=== PATIENT | female | born 1935 | race Caucasian/White ===

== ENCOUNTER 2016-04-07 11:21 | Emergency (ER) | payer OTHER, MEDICARE ==
[~2016-04-07] VITALS: Ht 162.6 cm; Wt 72.6 kg
--- NOTE | 2016-04-07 11:36 | ED DYSPNEA/ASTHMA COMPLAINT ---
History of Present Illness General Chief Complaint: Dyspnea (COPD, CHF, Other) Stated Complaint: PER [facility] LOW O2 SATS AND INCREASED WORK OF BREATHIN Source: patient, family, EMS Exam Limitations: dementia Vital Signs & Intake/Output Vital Signs & Intake/Output Vital Signs Date Time Temp Pulse Resp B/P Pulse O2 O2 Flow FiO2 Ox Delivery Rate 04/07 1930 122/64 04/07 1841 98.7 98 16 104/60 94 Room Air 04/07 1600 98.3 93 18 101/61 92 Room Air 04/07 1400 98.0 82 22 104/56 94 Room Air 04/07 1141 89 Room Air Room Air 04/07 1125 97.7 98 22 100/56 89 Room Air Allergies Coded Allergies: No Known Allergies (04/07/16) Reconcile Medications Ergocalciferol (Vitamin D2) (Vitamin D2) 50,000 UNIT CAPSULE 1 CAP PO QW SUPPLEMENT (Reported) Memantine HCl (Namenda XR) 28 MG CAP.SPR.24 1 CAP PO DAILY DEMENTIA (Reported ) Prednisolone Acetate 1 % DROPS.SUSP 1 GTT OPH D UNK (Reported) Triage Note: TRIAGE: PT BIBA FROM HOME. PER REPORT OF EMS SENT BY [facility] FOR EVAL OF LOW O2 SATS AND HR 120'S. EMS REPORT R/A SATS 95-96% AND HR 100. PT WITH HR 96 ON ARRIVAL AND R/A SATS 88-89%. IMPROVED TO 93% WITH 4L N/C. PT DENIES ANY PAIN. RADHA RANGEL INTO EVALUATE. Triage Nurses Notes Reviewed? yes Onset: Abrupt Duration: better, gone now Timing: single episode today Severity: mild Activities at Onset: none HPI: Patient is a 81-year-old female with past medical history of dementia whose history is limited however patient was brought in by ambulance for concerns of shortness of breath. Patient presents from her private residence It was noted by me to nursing staff that the visiting nurse and the were concerned of patient having A LOW SP02 AND NOT breathing well and which EMS does state to staff that patient has been oxygenating in the high 90's ON ARRIVAL and currently patient offers no complaints. (LEIGHANN KAY) Past History Medical History Any Pertinent Medical History? see below for history Other Medical Hx: DEMENTIA Surgical History Surgical History: non-contributory Psychosocial History What is your primary language Maltese Family History Hx Contributory? No (LEIGHANN KAY) Review of Systems Review of Systems Constitutional: Reports: no symptoms. EENTM: Reports: no symptoms. Respiratory: Reports: see HPI, short of breath. Cardiovascular: Reports: no symptoms. GI: Reports: no symptoms. Genitourinary: Reports: no symptoms. Musculoskeletal: Reports: no symptoms. Skin: Reports: no symptoms. Neurological/Psychological: Reports: no symptoms. Hematologic/Endocrine: Reports: no symptoms. Immunologic/Allergic: Reports: no symptoms. All Other Systems: Reviewed and Negative (LEIGHANN KAY) Physical Exam Physical Exam General Appearance: no apparent distress, alert, comfortable Respiratory: normal breath sounds, chest non-tender, no respiratory distress Comments: Well-developed well-nourished person in no acute distress HEENT: Normal EENT exam Neck: Supple, no lymphadenopathy, normal range of motion without pain or tenderness Back: Nontender, no CVA tenderness. Cardiovascular: Regular rate and rhythms no murmurs rubs or gallops, normal JVP Respiratory: Chest nontender. No respiratory distress.breath sounds clear to auscultation bilaterally Abdomen: Soft, nontender nondistended, no appreciable organomegaly. Normal bowel sounds. No ascites Extremity: No edema, no calf tenderness to palpation, normal and equal pulses. Neuro: Alert motor sensory normal, cranial nerves II through XII grossly intact. Skin: No appreciable rash on exposed skin, skin is warm and dry. Psych: Mood and affect is normal, memory and judgment is normal. Core Measures ACS in differential dx? No Severe Sepsis Present: No Septic Shock Present: No (LEIGHANN KAY) Progress Differential Diagnosis: asthma, AMI, bronchitis, costochondritis, CHF, COPD, musculoskeletal pain, pericarditis, pulmonary embolism, pneumonia, pneumothorax, rib fracture, unstable angina Plan of Care: Orders Procedure Date/time Status Heart Healthy Diet 04/08 B Active TROPONIN LEVEL 04/07 1720 Complete EKG 04/07 1720 Active RAPID VIRAL INFLUENZA A 04/07 1138 Complete BLOOD CULTURE 04/07 1138 Active ARTERIAL BLOOD GAS (GEN) 04/07 1137 Complete TROPONIN LEVEL 04/07 1137 Complete D-DIMER 04/07 1137 Complete COMPREHENSIVE METABOLIC PANEL 04/07 1137 Complete CBC WITHOUT DIFFERENTIAL 04/07 1137 Complete EKG 04/07 1137 Active Current Medications Sig/Justo Start time Last Medication Dose Stop Time Status Admin Sodium Chloride 1,000 ML BOLUS ONE 04/07 1845 CAN (Normal Saline 0.9%) 04/07 1944 Laboratory Tests 04/07/16 1720: Troponin I 0.02 04/07/16 1319: Anion Gap 16, Estimated GFR > 60, BUN/Creatinine Ratio 31.3 H, Glucose 113 H, Calcium 9.9, Total Bilirubin 0.5, AST 12 L, ALT 22, Alkaline Phosphatase 105, Troponin I < 0.01, Total Protein 7.5, Albumin 4.1, Globulin 3.4, Albumin/ Globulin Ratio 1.2, CBC w Diff NO MAN DIFF REQ, RBC 5.01, MCV 96.5, MCH 32.3 H, RDW 14.1, MPV 8.3, Gran % 73.8, Lymphocytes % 16.5 L, Monocytes % 7.9, Eosinophils % 1.4, Basophils % 0.4, Absolute Granulocytes 8.5 H, Absolute Lymphocytes 1.9, Absolute Monocytes 0.9 H, Absolute Eosinophils 0.2, Absolute Basophils 0, PUBS MCHC 33.5 04/07/16 1303: D-Dimer 234 H 04/07/16 1205: pH 7.44, pCO2 35, pO2 66 L, HCO3 23, ABG O2 Sat (Measured) 93.0 L, P-50 (Temp Corrected) N, Carboxyhemoglobin 1.9, O2 Concentration % .21, O2 Delivery Method RA, Phlebotomy Draw Site RIGHT RADIAL Microbiology 04/07 1319 BLOOD: Blood Culture - RECD 04/07 1303 BLOOD: Blood Culture - RECD On initial examination patient was in no apparent distress no respiratory distress and had unremarkable physical exam findings. It was noted that patient had intermittent episodes of 88% room air oxygenation however there is suspicion that this was a insufficient SPO2 monitoring in which patient did receive a ABG showing 93%. Patient had a negative d-dimer essentially ruling out pulmonary embolus and currently patient's initial troponin was negative and second set after 4 hours is pending. Patient currently eating And also is following all commands Patient is following all commands and patient was evaluated on multiple occasions and had no complaints lunchroom monitor noted to be normal sinus rhythm between 80 and 90 bpm Discussed disposition with Dr. LEMON who agrees Patient will be ambulated after she finishes her meal for evaluation of SPO2 04/07/2016 6:52:20 PM I also had a long conversation with patient's Ismael who states that patient has a known history of antalgic gait and instability where she needs significant observation and assistance with a walker and her visiting nurse to ambulate. It was noted by me and evaluated that patient has been at baseline with ambulation and can't weight bear however requires assistance. Patient's oxygen saturation 92% upon standing. Patient will be given a 500 bolus of fluid due to low blood pressure although there is noted prescriptions of diuretic After approximately 250 mL of IV fluid patient had recheck of blood pressure noted to be 122/64 Patient's was ' going to be home at their private residence in which patient will be transferred via [facility] due to fall risk and dementia (LEIGHANN KAY) Diagnostic Imaging: Viewed by Me: Radiology Read. CXR Impression: no acute abnormality, no infiltrates Initial ED EKG: normal QRS complex, normal sinus rhythm, SINUS RHYTHM AND 7 BPM Prior EKG: unchanged Repeat EKG: unchanged Comments: PATIENT: JERSON ROBLES PRESENT AGE: 81 PATIENT ACCOUNT NO: [id number] : 33 LOCATION: [facility] ORDERING PHYSICIAN: LEIGHANN GARCIA SERVICE DATE: 04/07/16 EXAM TYPE: RAD - XRY-PORTABLE CHEST XRAY EXAMINATION: XR PORTABLE CHEST CLINICAL INFORMATION: Hypoxia. COMPARISON: None. TECHNIQUE: Portable AP view of the chest was obtained. FINDINGS: There is mild cardiac enlargement but no evidence of CHF. No infiltrates, effusions, or lung masses are seen. Surgical clip noted upper left chest. IMPRESSION: No acute intrathoracic disease. (LEIGHANN KAY) Departure Departure Disposition: HOME OR SELF CARE Condition: Stable Clinical Impression Primary Impression: Shortness of breath Referrals: PENNY JONES,NIKIA Thompson (PCP/Family) Additional Instructions: As discussed continue home medications as directed. If symptoms worsen return to emergency room. Follow-up with primary care doctor this week for recheck of symptoms Departure Forms: Customer Survey General Discharge Information (LEIGHANN KAY) PA/SHEAR HELPER Co-Sign Statement Statement: ED Attending supervision documentation- [X] I saw and evaluated the patient. I have also reviewed all the pertinent lab results and diagnostic results. I agree with the findings and the plan of care as documented in the PA's/SHEAR HELPER's documentation. [] I have reviewed the ED Record and agree with the PA's/SHEAR HELPER's documentation. [] Additions or exceptions (if any) to the PAs/SHEAR HELPER's note and plan are summarized below: [] The patient is no acute distress. She had 2 negative troponins. unchanged EKG. Negative age-adjusted d-dimer. Chest x-ray negative. She was awake and alert and comfortable in the emergency department (CJ LEMON DO) Critical Care Note Critical Care Note Critical Care Time: non-applicable (JUAN CARLOS GARCIA,LEIGHANN)
[2016-04-07] MEDS ORDERED: NAMENDA XR28 M1 PO (11:38)
[2016-04-07] MEDS ORDERED: PREDNISOLONE ACE5 ML OPH (11:39)
--- NOTE | 2016-04-07 12:30 | RADIOLOGY REPORT ---
EXAMINATION: XR PORTABLE CHEST CLINICAL INFORMATION: Hypoxia. COMPARISON: None. TECHNIQUE: Portable AP view of the chest was obtained. FINDINGS: There is mild cardiac enlargement but no evidence of CHF. No infiltrates, effusions, or lung masses are seen. Surgical clip noted upper left chest. IMPRESSION: No acute intrathoracic disease.
[2016-04-07 13:33] LABS: ABSOLUTE BASOPHIL COUNT 0 /CUMM (0.0-0.2); ABSOLUTE EOSINOPHIL COUNT 0.2 /CUMM (0.0-0.7); ABSOLUTE GRANULOCYTE CT 8.5 /CUMM (1.4-6.5); ABSOLUTE LYMPH COUNT 1.9 /CUMM (1.2-3.4); ABSOLUTE MONOCYTE COUNT 0.9 /CUMM (0.10-0.60); BASOPHIL % 0.4 % (0.0-2.0); EOSINOPHIL % 1.4 % (0-5); GRANULOCYTE % 73.8 % (42.2-75.2); HEMATOCRIT 48.3 % (37-47); MEAN CORPUSCULAR HGB 32.3 PG (27.0-31.0); MEAN CORPUSCULAR HGB CONC 33.5 G/DL (33.0-37.0); MEAN CORPUSCULAR VOLUME 96.5 FL (81.0-99.0); MEAN PLATELET VOLUME 8.3 FL (7.4-10.4); PLATELET COUNT 216 /CUMM (130-400); RBC DISTRIBUTION WIDTH 14.1 % (11.5-14.5); RED BLOOD CELL CT 5.01 /CUMM (4.20-5.40); WHITE BLOOD CELL COUNT 11.5 /CUMM (4.8-10.8)
[2016-04-07] MEDS ORDERED: VITAMIN D250000 UNIT PO (16:10)
[2016-04-07 19:30] VITALS: BP 122/64
== END 2016-04-07 20:04 ==
LOC: ERH 11:21
PROVIDERS: Physician Assistant
DX: R06.02 Shortness of breath (principal); F03.90 Unspecified dementia, unspecified severity, without behavioral disturbance, psychotic disturbance, mood disturbance, and anxiety
CPT/HCPCS: 87040; 87804; 87804-59; 93005; 93010; J7040

== ENCOUNTER 2016-06-02 12:03 | Inpatient (IN) | payer OTHER, MEDICARE ==
[~2016-06-02] VITALS: Ht 162.6 cm; Wt 72.6 kg
[~2016-06-02 12:03] MED LIST: NAMENDA XR28 M1 PO; PREDNISOLONE ACE5 ML OPH; VITAMIN D250000 UNIT PO
--- NOTE | 2016-06-02 12:48 | ED AMS/SEIZURE/WEAK/DIZZY ---
History of Present Illness General Chief Complaint: General Adult Stated Complaint: WEAKNESS Source: patient, old records, EMS Exam Limitations: confusion, dementia Vital Signs & Intake/Output Vital Signs & Intake/Output Vital Signs Date Time Temp Pulse Resp B/P Pulse O2 O2 Flow FiO2 Ox Delivery Rate 06/05 1456 98.2 90 20 108/60 93 06/05 1314 97.9 90 20 120/60 06/05 0646 97.9 90 20 120/60 96 Room Air 06/04 2254 97.7 87 20 118/62 94 Room Air ED Intake and Output 06/05 0000 06/04 1200 Intake Total 1290 0 Output Total Balance 1290 0 Intake, IV 10 Intake, Oral 1280 0 Patient 160 lb Weight Allergies Coded Allergies: No Known Allergies (04/07/16) Reconcile Medications Acetaminophen 500 MG TABLET 2 TAB PO PRN PAIN (Reported) Docusate Sodium (Colace) 100 MG CAPSULE 1 CAP PO DAILY STOOL SOFTENER ( Reported) Ergocalciferol (Vitamin D2) (Vitamin D2) 50,000 UNIT CAPSULE 1 CAP PO QWED SUPPLEMENT (Reported) Memantine HCl (Namenda XR) 28 MG CAP.SPR.24 1 CAP PO DAILY DEMENTIA (Reported ) Prednisolone Acetate 1 % DROPS.SUSP 1 GTT OPH QAM BOTH EYES (Reported) Triage Note: PT BIBA FROM HOME FOR WEAKNESS. PT LIVES AT HOME WITH . VISITING NURSES CAME IN TO SEE PT AND CALLED 911 DUE PT HAVING INCREASED WEAKNESS OVER THE LAST 3 DAYS. PT ARRIVES ALERT/CONFUSED (BASELINE) H/O DEMENTIA. PT ALERT TO SELF ONLY. DENIES ANY PAIN, UNSURE WHY SHE IS HERE. CHANGED INTO GOWN, AWAITING EVAL. Triage Nurses Notes Reviewed? yes HPI: Patient presents for evaluation of generalized weakness. Although the patient herself is unable to provide history and has no specific complaint at this time, she was felt to require emergency evaluation by her visiting nurse. Past History Travel History Traveled to [place] past 21 day No Medical History Any Pertinent Medical History? see below for history Neurological: dementia EENT: IRITIS Cardiovascular: NONE Respiratory: NONE Gastrointestinal: constipation Hepatic: NONE Renal: NONE Musculoskeletal: RIB FX COLLARBONE FX Psychiatric: NONE Endocrine: NONE Blood Disorders: NONE Cancer(s): NONE Other Medical Hx: DEMENTIA Surgical History Surgical History: non-contributory Psychosocial History What is your primary language Belarusian Tobacco Use: Cognitive Impairment Family History Hx Contributory? No Review of Systems Review of Systems Constitutional: Reports: weakness. EENTM: Reports: no symptoms. Respiratory: Reports: no symptoms. Cardiovascular: Reports: no symptoms. GI: Reports: no symptoms. Genitourinary: Reports: no symptoms. Musculoskeletal: Reports: no symptoms. Skin: Reports: no symptoms. Neurological/Psychological: Reports: confusion. Hematologic/Endocrine: Reports: no symptoms. Immunologic/Allergic: Reports: no symptoms. All Other Systems: Reviewed and Negative Physical Exam Physical Exam General Appearance: SEE BELOW Comments: Gen.: Well-nourished, well-developed, no acute respiratory distress. Head: Normocephalic, atraumatic. Eyes: Normal inspection bilaterally Ears: Normal inspection bilaterally Nose: Normal inspection Throat/mouth : Tacky mucosa Neck: Supple, full range of motion, no goiter Heart: Regular rate and rhythm, no murmurs rubs or gallops Lungs: Clear to auscultation bilaterally with normal air entry Chest: Nontender Back: Normal range of motion Abdomen: Soft, mild diffuse abdominal tenderness without rebound or guarding, nondistended, normal bowel sounds Extremities: Normal range of motion grossly, equal radial pulses, no cyanosis clubbing or edema Neurologic: Cranial nerves grossly intact, speech is clear Skin: warm and dry Psychiatric: Calm, cooperative, no apparent delusions or hallucinations, response is slow but otherwise appropriate Core Measures ACS in differential dx? No CVA/TIA Diagnosis: No Severe Sepsis Present: No Septic Shock Present: No Progress Differential Diagnosis: OCCULT INFECTION, DEHYDRATION, ELECTROLYTE ABNORMALITY cva Plan of Care: Orders Procedure Date/time Status Discharge Patient 06/05 UNK Active Laboratory Tests 06/05/16 0806: Anion Gap 13, Estimated GFR > 60, BUN/Creatinine Ratio 22.9 Initial ED EKG: NSR, rate (88), nonspecific ST T wave chg Prior EKG: unchanged Comments: 06/02/2016 3:15:04 PM patient treated with IV Rocephin for urinary tract infection and normal saline infusion for hypernatremia. Departure Departure Disposition: STILL A PATIENT Condition: Stable Clinical Impression Primary Impression: Acute confusion Secondary Impressions: Altered mental status Qualifiers: Altered mental status type: unspecified Qualified Code: R41.82 - Altered mental status, unspecified Hypernatremia UTI (urinary tract infection) Qualifiers: Urinary tract infection type: acute cystitis Hematuria presence: without hematuria Qualified Code: N30.00 - Acute cystitis without hematuria Referrals: PENNY JONES,NIKIA Thompson (PCP/Family) Departure Forms: Customer Survey General Discharge Information Admission Note Spoke With: DAVIN FRANCE MD Documentation of Exam: Documentation of any treatments & extenuating circumstances including Concerns Regarding Discharge (functional status, medication knowledge or non-compliance, living conditions, etc.) that warrant an admission rather than observation: Patient presents with severe generalized weakness and worsening confusion. She has a urinary tract infection and hypernatremia. Given her age and baseline dementia, I do not feel she has a good candidate for outpatient management. I feel she would be unable to comply with outpatient treatment and would potentially return in worse clinical condition including urosepsis. I feel in order to prevent secondary sepsis the patient should be hospitalized and treated aggressively with IV antibiotics. In addition the patient has hypernatremia and her sodium level should be monitored as she is treated with normal saline. Given this patient's advanced age and multiple medical comorbidities and further treatment will be prolonged and potentially complicated, thus requiring a multi- day hospitalization. treatment will be prolonged and potentially complicated, thus requiring a multi- day hospitalization.
[2016-06-02 13:06] LABS: ABSOLUTE BASOPHIL COUNT 0 /CUMM (0.0-0.2); ABSOLUTE EOSINOPHIL COUNT 0.2 /CUMM (0.0-0.7); ABSOLUTE GRANULOCYTE CT 7.2 /CUMM (1.4-6.5); ABSOLUTE LYMPH COUNT 1.6 /CUMM (1.2-3.4); ABSOLUTE MONOCYTE COUNT 0.7 /CUMM (0.10-0.60); BASOPHIL % 0.5 % (0.0-2.0); EOSINOPHIL % 1.6 % (0-5); GRANULOCYTE % 74.3 % (42.2-75.2); MEAN CORPUSCULAR HGB 31.5 PG (27.0-31.0); MEAN CORPUSCULAR HGB CONC 32.8 G/DL (33.0-37.0); MEAN CORPUSCULAR VOLUME 95.9 FL (81.0-99.0); MEAN PLATELET VOLUME 8.6 FL (7.4-10.4); PLATELET COUNT 235 /CUMM (130-400); WHITE BLOOD CELL COUNT 9.7 /CUMM (4.8-10.8)
--- NOTE | 2016-06-02 14:08 | RADIOLOGY REPORT ---
EXAMINATION: XR PORTABLE CHEST CLINICAL INFORMATION: Weakness COMPARISON: 04/07/2016 TECHNIQUE: Portable AP view of the chest was obtained. FINDINGS: The lungs are clear with no focal consolidation. No evidence of pneumothorax, pulmonary edema, or pleural effusions. Cardiac size is within normal limits. Calcification is present at the aortic arch. No acute osseous findings are seen. Healed left rib fractures are noted. IMPRESSION: No acute cardiopulmonary findings.
--- NOTE | 2016-06-02 15:53 | History & Physical ---
DALLASVARSHAPLACIDO Smyth 06/02/16 1553: General Information and HPI MD Statement: I have seen and personally examined JERSON ROBLES and documented this H&P. The patient is a 81 year old F who presented with a patient stated chief complaint of [change in mentation, slow answering questions]. Source of Information: family, old records Exam Limitations: clinical condition History of Present Illness: Mrs. Robles is a 81-year-old lady with a PMH of vitamin D deficiency, dementia, traumatic fall in 2010 with resultant "traumatic dementia", ambulates with the aid of a rolling walker with assist, chronic constipation was brought in after noticeable decrease in her ability to answer questions over the past few days. Information is obtained primarily from the patient's . At her baseline the patient does have visiting nurse twice a day, is independent with feeding herself, requires assistance with all other ADLs, does have some deficits with verbalization. They report that over the past 3 days she has exhibited some difficulty with eating and decreased ability to communicate. She does have a history of chronic constipation but has maintained a regular BM over the past few days. They deny any recent fevers, chills, changes in medication/diet, complaints of abdominal pain or nausea. Allergies/Medications Allergies: Coded Allergies: No Known Allergies (04/07/16) Home Med list Acetaminophen 500 MG TABLET 2 TAB PO PRN PAIN (Reported) Docusate Sodium (Colace) 100 MG CAPSULE 1 CAP PO DAILY STOOL SOFTENER ( Reported) Ergocalciferol (Vitamin D2) (Vitamin D2) 50,000 UNIT CAPSULE 1 CAP PO QWED SUPPLEMENT (Reported) Memantine HCl (Namenda XR) 28 MG CAP.SPR.24 1 CAP PO DAILY DEMENTIA (Reported ) Prednisolone Acetate 1 % DROPS.SUSP 1 GTT OPH QAM BOTH EYES (Reported) Past History Travel History Traveled to [place] past 21 day No Medical History Neurological: dementia EENT: IRITIS Cardiovascular: NONE Respiratory: NONE Gastrointestinal: constipation Hepatic: NONE Renal: NONE Musculoskeletal: RIB FX COLLARBONE FX Psychiatric: NONE Endocrine: NONE Blood Disorders: NONE Cancer(s): NONE Other Medical Hx: DEMENTIA Surgical History Surgical History: non-contributory Review of Systems Review of Systems Constitutional: Reports: see HPI. EENTM: Reports: no symptoms. Cardiovascular: Reports: no symptoms. Respiratory: Reports: no symptoms. GI: Reports: see HPI. Genitourinary: Reports: no symptoms. Musculoskeletal: Reports: see HPI. Skin: Reports: no symptoms. Exam & Diagnostic Data Last 24 Hrs of Vital Signs/I&O Vital Signs Date Time Temp Pulse Resp B/P Pulse O2 O2 Flow FiO2 Ox Delivery Rate 06/02 1749 98.1 97 16 108/64 93 Room Air 06/02 1639 97.2 93 20 133/64 93 Room Air 06/02 1448 97.0 89 16 154/77 90 Room Air 06/02 1412 99.0 80 20 144/68 90 Room Air 06/02 1307 92 135/63 06/02 1307 98.0 89 20 115/58 06/02 1225 97.0 68 123/60 06/02 1210 96 Room Air Intake & Output 06/02 1600 06/02 0800 06/02 0000 Intake Total Output Total 100 Balance -100 Output, Urine 100 Patient 160 lb Weight Physical Exam General Appearance Alert, No Acute Distress, AAO X1 (person) HEENT EOMI, Mucous Membr. moist/pink Cardiovascular Regular Rate, Normal S1, Normal S2 Lungs Normal Air Movement, DImnished breAth sounds in the basilar regions Abdomen Normal Bowel Sounds, Soft, No Tenderness Neurological AAO X1 (Person) unable to complete a full neurologic exam at this time. Chronic LLE atrophy Extremities Normal Pulses Vascular Pulses Symmetrical Last 24 Hrs of Labs/Antione: Laboratory Tests 06/02/16 1300: Urine Color YEL, Urine Clarity HAZY H, Urine pH 6.0, Ur Specific [place] 1.025, Urine Protein NEG, Urine Ketones NEG, Urine Nitrite POS H, Urine Bilirubin NEG, Urine Urobilinogen 0.2, Ur Leukocyte Esterase MOD H, Ur Microscopic SEDIMENT EXAMINED, Urine RBC 3-5, Urine WBC 25-50 H, Ur Epithelial Cells RARE, Urine Bacteria PACKD H, Urine Hemoglobin TRACE-INTACT, Urine Glucose NEG 06/02/16 1240: Anion Gap 12, Estimated GFR > 60, BUN/Creatinine Ratio 31.3 H, Glucose 152 H, Calcium 9.9, Total Bilirubin 0.5, AST 14, ALT 24, Alkaline Phosphatase 94, Troponin I < 0.01, Total Protein 7.3, Albumin 3.9, Globulin 3.4, Albumin/ Globulin Ratio 1.1, TSH 1.500, Free T4 1.31, Total T3 1.12, CBC w Diff NO MAN DIFF REQ, RBC 4.80, MCV 95.9, MCH 31.5 H, RDW 13.0, MPV 8.6, Gran % 74.3, Lymphocytes % 16.3 L, Monocytes % 7.3, Eosinophils % 1.6, Basophils % 0.5, Absolute Granulocytes 7.2 H, Absolute Lymphocytes 1.6, Absolute Monocytes 0.7 H, Absolute Eosinophils 0.2, Absolute Basophils 0, PUBS MCHC 32.8 L Assessment/Plan Assessment: 81-year-old lady with a PMH of vitamin D deficiency, dementia, traumatic fall in 2010 with resultant "traumatic dementia", ambulates with the aid of a rolling walker with assist, chronic constipation was brought in after noticeable decrease in her ability to answer questions over the past few days. VS admission: BP 123/60, HR 68, RR 20, SPO2 96% on RA, T 97.0 Pertinent labs: WBC 9.7, H&H 15.1/46.0, platelets 230, sodium 149, potassium 4.5 , BUN/CR 25/0.8, glucose 152 UA: Moderate leukocyte esterase, positive nitrites, 25-50 WBCs, packed bacteria Problem list 1. UTI 2. Delirium 3. Dementia 4. Vitamin D deficiency 5. Hypernatremia Plan: * Admit to general medicine floor * We'll start the patient on ceftriaxone for UTI. Follow-up urine cultures and sensitivities * Delirium likely secondary to urinary tract infection. Continue to monitor over the next 24 hours * Mild hyponatremia. D5 half NS at 75/hr X1. Repeat BMP in the a.m. * PT evaluation in the a.m. * DVT prophylaxis: Lovenox * Bowel regimen for constipation * Full code As Ranked By This Provider Problem List: 1. UTI (urinary tract infection) Qualifiers Urinary tract infection type: acute cystitis Hematuria presence: without hematuria Qualified Code: N30.00 - Acute cystitis without hematuria 2. Hypernatremia 3. Delirium 4. Constipation Core Measures/Miscellaneous Acute Coronary Syndrome ACS Diagnosis: No Cerebrovascular Accident CVA/TIA Diagnosis: No Congestive Heart Failure CHF Diagnosis: No Venous Thromboembolism VTE Risk Factors: Age > 40 [facility] prophylaxis d/t: No contraindications No VTE Pharm Prophylaxis d/t: No contraindications VTE Diagnosis: No VTE Type: NONE VTE Confirmed by (Test): NONE Severe Sepsis Severe Sepsis Present: No Septic Shock Septic Shock Present: No Miscellaneous Documentation Attending Case Discussed With: DAVIN FRANCE MD Primary Care Physician: PENNY JONES,NIKIA Thompson Patient sees these Specialists NA Level of Patient Care: General Medicine Resident Review Statement Resident Statement: examined this patient, discussed with international tax manager, agreed with international tax manager, discussed with family, reviewed EMR data (avail), discussed with case mgmt DAVIN FRANCE MD 06/02/16 2159: Attending MD Review Statement Attending Statement Attending MD Statement: examined this patient, discuss w/resident/PA/HIRED WORKER, agreed w/resident/PA/HIRED WORKER, reviewed EMR data (avail) Attending Assessment/Plan: 81F who lives alone and is independent presenting with delirium, metabolic encephalopathy, and unsteady gait, likely secondary to UTI evidenced by urinalysis. Labs and clinical evaluation show dehydration and hypernatremia. Will start IV fluids, Ceftriaxone, PT eval, continue home medications, monitor electrolytes, DVT PPx
[2016-06-02] MEDS ORDERED: COLACE100 M1 PO (16:22)
[2016-06-02] MEDS ORDERED: ACETAMINOPHEN500 M4 PO (16:23)
[2016-06-02 17:49] VITALS: BP 108/64
--- NOTE | 2016-06-02 22:02 | Admission Certification ---
Admission Certification Certification Statement - As attending physician, I certify that at the time of - admission, based on clinical presentation, severity of - symptoms, need for further diagnostic testing and - therapeutic interventions, and risk of adverse outcomes - without in-hospital treatment, in my clinical assessment, - this patient requires an acute hospital stay for a minimum - of two nights or longer. I have also considered psychsocial - factors such as support system, advanced age, financial - issues, cognitive issues, and failed out-patient treatments, - past re-admission history, safety of patient, and lack of - compliance as applicable. Specific rationale supporting this admission is: Delirium, dehydration, UTI, hypernatremia
[2016-06-02 22:24] VITALS: BP 110/60
[2016-06-03 06:43] VITALS: BP 118/66
--- NOTE | 2016-06-03 07:58 | PN- Housestaff ---
[facility] 0758: Subjective Follow-up For: Delirium most likely secondary to UTI and hypernatremia Subjective: Afebrile, hemodynamically stable, WBCs WNL, no acute overnight events reported. Patient is demented and no accurate review system can't be obtained, however she looks relaxed and comfortable. Review of Systems Constitutional: Reports: no symptoms, see HPI. Objective Last 24 Hrs of Vital Signs/I&O Vital Signs Date Time Temp Pulse Resp B/P Pulse O2 O2 Flow FiO2 Ox Delivery Rate 06/03 1132 Room Air 06/03 0643 98.6 85 18 118/66 92 Room Air 06/03 0000 91 Room Air 06/02 2224 98.4 97 18 110/60 91 Room Air 06/02 1749 98.1 97 16 108/64 93 Room Air 06/02 1639 97.2 93 20 133/64 93 Room Air 06/02 1448 97.0 89 16 154/77 90 Room Air 06/02 1412 99.0 80 20 144/68 90 Room Air 06/02 1307 92 135/63 06/02 1307 98.0 89 20 115/58 06/02 1225 97.0 68 123/60 06/02 1210 96 Room Air Intake & Output 06/03 1600 06/03 0800 06/03 0000 Intake Total 100 240 Output Total Balance 100 240 Intake, Oral 100 240 Number 0 Bowel Movements Patient 72.575 kg Weight Physical Exam General Appearance: Alert, Cooperative, No Acute Distress, oriented X1 HEENT: Atraumatic, PERRLA, EOMI, Mucous Membr. moist/pink Cardiovascular: Regular Rate, Normal S1, Normal S2, No Murmurs Lungs: Clear to Auscultation, Normal Air Movement Abdomen: Soft, No Tenderness Neurological: alert but not oriented Extremities: No Clubbing, No Cyanosis, No Edema Current Medications: Current Medications Sig/Justo Start time Last Medication Dose Route Stop Time Status Admin Ceftriaxone Sodium 1,000 MG DAILY 06/03 1000 AC 06/03 IV 0931 Ceftriaxone Sodium 0 .STK-MED ONE 06/02 1421 DC .ROUTE Ceftriaxone Sodium 1,000 MG ONCE ONE 06/02 1415 DC 06/02 IV 06/02 1416 1440 Dextrose/Sodium 1,000 ML ONCE ONE 06/02 2200 DC 06/02 Chloride IV 06/03 1119 2332 Dextrose/Water 1,000 ML ONCE ONE 06/03 1015 AC 06/03 IV 06/03 2334 1048 Docusate Sodium 100 MG DAILY 06/02 1656 AC 06/03 PO 0931 Enoxaparin Sodium 40 MG DAILY@1600 06/03 1600 AC SC Enoxaparin Sodium 0 .STK-MED ONE 06/02 1643 DC SC Enoxaparin Sodium 40 MG DAILY 06/02 1633 DC 06/02 SC 1641 Ergocalciferol 50,000 IU QWED 06/03 0700 AC 06/03 PO 0526 Ibuprofen 600 MG Q6P PRN 06/02 1715 AC PO Ibuprofen 600 MG Q6P PRN 06/02 1645 DC PO Memantine 10 MG BID 06/02 2200 AC 06/03 PO 0931 Oxycodone/ 1 TAB Q6P PRN 06/02 1645 AC Acetaminophen PO Oxycodone/ 2 TAB Q6P PRN 06/02 1645 AC Acetaminophen PO Prednisolone 1 GTT QAM 06/03 1000 AC 06/03 OPH 0931 Sodium Chloride 1,000 ML ONCE ONE 06/02 1415 DC 06/02 IV 06/02 2054 1440 Last 24 Hrs of Lab/Antione Results Last 24 Hrs of Labs/Mics: Laboratory Tests 06/03/16 0735: Anion Gap 11, Estimated GFR > 60, BUN/Creatinine Ratio 27.1 H, CBC w Diff NO MAN DIFF REQ, RBC 4.34, MCV 95.9, MCH 31.9 H, RDW 13.7, MPV 8.4, Gran % 66.4, Lymphocytes % 21.0, Monocytes % 8.6, Eosinophils % 3.6, Basophils % 0.4, Absolute Granulocytes 5.3, Absolute Lymphocytes 1.7, Absolute Monocytes 0.7 H, Absolute Eosinophils 0.3, Absolute Basophils 0, PUBS MCHC 33.3 06/02/16 1300: Urine Color YEL, Urine Clarity HAZY H, Urine pH 6.0, Ur Specific [place] 1.025, Urine Protein NEG, Urine Ketones NEG, Urine Nitrite POS H, Urine Bilirubin NEG, Urine Urobilinogen 0.2, Ur Leukocyte Esterase MOD H, Ur Microscopic SEDIMENT EXAMINED, Urine RBC 3-5, Urine WBC 25-50 H, Ur Epithelial Cells RARE, Urine Bacteria PACKD H, Urine Hemoglobin TRACE-INTACT, Urine Glucose NEG 06/02/16 1240: Anion Gap 12, Estimated GFR > 60, BUN/Creatinine Ratio 31.3 H, Glucose 152 H, Calcium 9.9, Total Bilirubin 0.5, AST 14, ALT 24, Alkaline Phosphatase 94, Troponin I < 0.01, Total Protein 7.3, Albumin 3.9, Globulin 3.4, Albumin/ Globulin Ratio 1.1, TSH 1.500, Free T4 1.31, Total T3 1.12, CBC w Diff NO MAN DIFF REQ, RBC 4.80, MCV 95.9, MCH 31.5 H, RDW 13.0, MPV 8.6, Gran % 74.3, Lymphocytes % 16.3 L, Monocytes % 7.3, Eosinophils % 1.6, Basophils % 0.5, Absolute Granulocytes 7.2 H, Absolute Lymphocytes 1.6, Absolute Monocytes 0.7 H, Absolute Eosinophils 0.2, Absolute Basophils 0, PUBS MCHC 32.8 L Assessment/Plan Assessment: 1. Delirium most likely multifactorial secondaryto UTI , hypernatremia, and dementia. * Continue ceftriaxone for UTI. * Follow-up urine cultures and sensitivities 2. Hypernatremia * Continue D5W at 75/hr X1. * Repeat BMP daily 3. Low vitamin D * Continue home dose of vitamin D Pain management with Percocet and ibuprofen when necessary as per scale DVT prophylaxis: Lovenox Full code Problem List: 1. UTI (urinary tract infection) 2. Delirium 3. Hypernatremia Pain Ratin Pain Location: na Pain Goal: Remain pain free Pain Plan: See A&P Tomorrow's Labs & Rationales: BEP for hypernatremia follow-up KHANG DURBIN 06/03/16 1129: Attending MD Review Statement Attending Statement Attending MD Statement: examined this patient, discuss w/resident/PA/GLASS BEVELLER, agreed w/resident/PA/GLASS BEVELLER, discussed with family, reviewed EMR data (avail), discussed with nursing, discussed with case mgmt, reviewed images Attending Assessment/Plan: 81F who lives alone and is independent presenting with delirium, toxic metabolic encephalopathy, and unsteady gait, likely secondary to UTI evidenced by urinalysis. Labs and clinical evaluation show dehydration and hypernatremia. c/ w IV fluids, Ceftriaxone, PT eval, can d/c abx if cultures remain negative. Continue home medications, monitor electrolytes, DVT PPx
[2016-06-03 09:19] LABS: ABSOLUTE BASOPHIL COUNT 0 /CUMM (0.0-0.2); ABSOLUTE EOSINOPHIL COUNT 0.3 /CUMM (0.0-0.7); ABSOLUTE GRANULOCYTE CT 5.3 /CUMM (1.4-6.5); ABSOLUTE LYMPH COUNT 1.7 /CUMM (1.2-3.4); ABSOLUTE MONOCYTE COUNT 0.7 /CUMM (0.10-0.60); BASOPHIL % 0.4 % (0.0-2.0); EOSINOPHIL % 3.6 % (0-5); GRANULOCYTE % 66.4 % (42.2-75.2); HEMATOCRIT 41.6 % (37-47); MEAN CORPUSCULAR HGB 31.9 PG (27.0-31.0); MEAN CORPUSCULAR HGB CONC 33.3 G/DL (33.0-37.0); MEAN CORPUSCULAR VOLUME 95.9 FL (81.0-99.0); MEAN PLATELET VOLUME 8.4 FL (7.4-10.4); PLATELET COUNT 219 /CUMM (130-400); RBC DISTRIBUTION WIDTH 13.7 % (11.5-14.5); RED BLOOD CELL CT 4.34 /CUMM (4.20-5.40)
[2016-06-03 14:23] VITALS: BP 104/60
--- NOTE | 2016-06-03 15:14 | Discharge Summary ---
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 VS admission: BP 123/60, HR 68, RR 20, SPO2 96% on RA, T 97.0 Pertinent labs: WBC 9.7, H&H 15.1/46.0, platelets 230, sodium 149, potassium 4.5 , BUN/CR 25/0.8, glucose 152 UA: Moderate leukocyte esterase, positive nitrites, 25-50 WBCs, packed bacteria The patient was admitted to the general medicine floor and was treated in the hospital for the following problems 1. Acute delirium likely secondary to underlying UTI versus hypernatremia 2. Suspicion of urinary tract infection 3. Hypernatremia 4. Chronic vitamin D deficiency 5. Chronic constipation Hospital course the patient was treated in the hospital with IV fluids. Free water deficit of 2.5 L was corrected with D5 W normal saline The patient's antibiotics were discontinued at the suspicion for UTI was low. No changes were made to the patient's medications. The patient was evalautaed by the physical therapy who recommended the patient would benefit from short-term rehabilitation. the patient's sodium at the time of discharge was 143. Recommend continuing woith hydration and low sodium diet. Final disposition STR Allergies: Coded Allergies: No Known Allergies (04/07/16) Significant Procedures: Laboratory Tests 06/04 06/03 0640 0735 Chemistry Sodium (137 - 145 mmol/L) Pending 148 H Potassium (3.5 - 5.1 mmol/L) Pending 4.3 Chloride (98 - 107 mmol/L) Pending 112 H Carbon Dioxide (22 - 30 mmol/L) Pending 26 Anion Gap (5 - 16) Pending 11 BUN (7 - 17 mg/dL) Pending 19 H Creatinine (0.5 - 1.0 mg/dL) Pending 0.7 Estimated GFR (>60 ml/min) > 60 BUN/Creatinine Ratio (7 - 25 %) Pending 27.1 H Hematology CBC w Diff NO MAN DIFF REQ WBC (4.8 - 10.8 /CUMM) 8.0 RBC (4.20 - 5.40 /CUMM) 4.34 Hgb (12.0 - 16.0 G/DL) 13.8 Hct (37 - 47 %) 41.6 MCV (81.0 - 99.0 FL) 95.9 MCH (27.0 - 31.0 PG) 31.9 H RDW (11.5 - 14.5 %) 13.7 Plt Count (130 - 400 /CUMM) 219 MPV (7.4 - 10.4 FL) 8.4 Gran % (42.2 - 75.2 %) 66.4 Lymphocytes % (20.5 - 51.1 %) 21.0 Monocytes % (1.7 - 9.3 %) 8.6 Eosinophils % (0 - 5 %) 3.6 Basophils % (0.0 - 2.0 %) 0.4 Absolute Granulocytes (1.4 - 6.5 /CUMM) 5.3 Absolute Lymphocytes (1.2 - 3.4 /CUMM) 1.7 Absolute Monocytes (0.10 - 0.60 /CUMM) 0.7 H Absolute Eosinophils (0.0 - 0.7 /CUMM) 0.3 Absolute Basophils (0.0 - 0.2 /CUMM) 0 PUBS MCHC (33.0 - 37.0 G/DL) 33.3 04/ 04/ 1300 1240 Chemistry Sodium (137 - 145 mmol/L) 149 H Potassium (3.5 - 5.1 mmol/L) 4.5 Chloride (98 - 107 mmol/L) 109 H Carbon Dioxide (22 - 30 mmol/L) 28 Anion Gap (5 - 16) 12 BUN (7 - 17 mg/dL) 25 H Creatinine (0.5 - 1.0 mg/dL) 0.8 Estimated GFR (>60 ml/min) > 60 BUN/Creatinine Ratio (7 - 25 %) 31.3 H Glucose (65 - 99 mg/dL) 152 H Calcium (8.4 - 10.2 mg/dL) 9.9 Total Bilirubin (0.2 - 1.3 mg/dL) 0.5 AST (14 - 36 U/L) 14 ALT (9 - 52 U/L) 24 Alkaline Phosphatase (<127 U/L) 94 Troponin I (< 0.11 ng/ml) < 0.01 Total Protein (6.3 - 8.2 g/dL) 7.3 Albumin (3.5 - 5.0 g/dL) 3.9 Globulin (1.9 - 4.2 gm/dL) 3.4 Albumin/Globulin Ratio (1.1 - 2.2 %) 1.1 TSH (0.270 - 4.200 uIU/mL) 1.500 Free T4 (0.85 - 1.93 ng/dL) 1.31 Total T3 (0.97 - 1.69 ng/mL) 1.12 Hematology CBC w Diff NO MAN DIFF REQ WBC (4.8 - 10.8 /CUMM) 9.7 RBC (4.20 - 5.40 /CUMM) 4.80 Hgb (12.0 - 16.0 G/DL) 15.1 Hct (37 - 47 %) 46.0 MCV (81.0 - 99.0 FL) 95.9 MCH (27.0 - 31.0 PG) 31.5 H RDW (11.5 - 14.5 %) 13.0 Plt Count (130 - 400 /CUMM) 235 MPV (7.4 - 10.4 FL) 8.6 Gran % (42.2 - 75.2 %) 74.3 Lymphocytes % (20.5 - 51.1 %) 16.3 L Monocytes % (1.7 - 9.3 %) 7.3 Eosinophils % (0 - 5 %) 1.6 Basophils % (0.0 - 2.0 %) 0.5 Absolute Granulocytes (1.4 - 6.5 /CUMM) 7.2 H Absolute Lymphocytes (1.2 - 3.4 /CUMM) 1.6 Absolute Monocytes (0.10 - 0.60 /CUMM) 0.7 H Absolute Eosinophils (0.0 - 0.7 /CUMM) 0.2 Absolute Basophils (0.0 - 0.2 /CUMM) 0 PUBS MCHC (33.0 - 37.0 G/DL) 32.8 L Urines Urine Color (YEL,AMB,STR) YEL Urine Clarity (CLEAR) HAZY H Urine pH (5.0 - 8.0) 6.0 Ur Specific [place] (1.001 - 1.035) 1.025 Urine Protein (NEG,<30 MG/DL) NEG Urine Ketones (NEG) NEG Urine Nitrite (NEG) POS H Urine Bilirubin (NEG) NEG Urine Urobilinogen (0.1 - 1.0 EU/dl) 0.2 Ur Leukocyte Esterase (NEG) MOD H Ur Microscopic SEDIMENT EXAMINED Urine RBC (0 - 5 /HPF) 3-5 Urine WBC (0 - 2 /HPF) 25-50 H Ur Epithelial Cells (NONE,FEW) RARE Urine Bacteria (NEG/NONE) PACKD H Urine Hemoglobin (NEG) TRACE-INTACT Urine Glucose (N MG/DL) NEG Disposition Summary Disposition Principal Diagnosis: Hypoernatremia Additional Diagnosis: UTI chronic consitipation Discharge Disposition: SNF Discharge Instructions General Discharge Information Code Status: Full Code Patient's Diet: As tolerated Patient's Activity: As tolerated Follow-Up Instructions/Appts: F/u with pcp in 1 week Medications at Discharge Discharge Medications: Continue taking these medications: Memantine HCl (Namenda XR) 28 MG CAP.SPR.24 1 Capsule ORAL DAILY Qty = 30 Prednisolone Acetate (Prednisolone Acetate) 1 % DROPS.SUSP 1 Drop In the eye Every Morning Qty = 15 Ergocalciferol (Vitamin D2) (Vitamin D2) 50,000 UNIT CAPSULE 1 Capsule ORAL EVERY WEDNESDAY Qty = 12 Docusate Sodium (Colace) 100 MG CAPSULE 1 Capsule ORAL DAILY Acetaminophen (Acetaminophen) 500 MG TABLET 2 Tablet ORAL as needed for PAIN Copies To: PENNY JONES,NIKIA Thompson
[2016-06-03 22:48] VITALS: BP 106/62
[2016-06-04 06:50] VITALS: BP 120/76
--- NOTE | 2016-06-04 07:54 | Patient Discharge Instructions ---
Discharge Instructions General Discharge Information You were seen/treated for: HYPONATREMIA Special Instructions: PLEASE F/U WITH YOUR PCP IN 1 WEEK PLEASE DRINK PLENTY OF WATER YOUR SODIUM IS HIGH. Acute Coronary Syndrome Inclusion Criteria At DC or during hospital stay patient has or had the following: ACS DIAGNOSIS No Discharge Core Measures Meds if any: Prescribed or Continued at Discharge Meds if any: NOT Prescribed or Continued at Discharge Congestive Heart Failure Inclusion Criteria At DC or during hospital stay patient has or had the following: CHF DIAGNOSIS No Discharge Core Measures Meds if any: Prescribed or Continued at Discharge Meds if any: NOT Prescribed or Continued at Discharge Cerebrovascular accident Inclusion Criteria At DC or during hospital stay patient has or had the following: CVA/TIA Diagnosis No Discharge Core Measures Meds if any: Prescribed or Continued at Discharge Meds if any: NOT Prescribed or Continued at Discharge Venous thromboembolism Inclusion Criteria VTE Diagnosis No VTE Type NONE VTE Confirmed by (Test) NONE Discharge Core Measures - Per Current guidelines, there needs to be overlap - treatment for the first 5 days of Warfarin therapy. - If discharged on Warfarin prior to 5 days of - overlap therapy, the patient will need to be - assessed for post discharge needs including - *Post discharge parental anticoagulation - *Warfarin and/or parental anticoagulation education - *Follow up date to check INR post discharge At least 5 days overlap therapy as Inpatient No Meds if any: Prescribed or Continued at Discharge Note: Overlap Therapy is Warfarin and Anticoagulant Meds if any: NOT Prescribed or Continued at Discharge
--- NOTE | 2016-06-04 11:05 | PN- Housestaff ---
[facility] 1105: Subjective Follow-up For: Delirium most likely secondary advanced dementia , hypernatremia and possible UTI. Subjective: Afebrile, hemodynamically stable, WBCs within normal limits, no acute overnight events reported. She is more awake and alert comparing to yesterday, she still not oriented X3. Patient exhibited inappropriate acts. She does not looks in pain or distress. Significant improvement in oral intake. View of system cannot be obtained given the advanced dementia. Review of Systems Constitutional: Reports: no symptoms. Objective Last 24 Hrs of Vital Signs/I&O Vital Signs Date Time Temp Pulse Resp B/P Pulse O2 O2 Flow FiO2 Ox Delivery Rate 06/04 1120 Room Air 06/04 0650 98.5 80 20 120/76 93 Room Air 06/03 2248 98.4 91 20 106/62 92 Room Air 06/03 1423 98.7 95 20 104/60 96 Room Air Intake & Output 06/04 1600 06/04 0800 06/04 0000 Intake Total 0 600 Output Total Balance 0 600 Intake, IV 600 Intake, Oral 0 Physical Exam General Appearance: Alert, No Acute Distress, Not oriented X3 Skin: No Rashes HEENT: Atraumatic, PERRLA, EOMI, Mucous Membr. moist/pink Cardiovascular: Regular Rate, Normal S1, Normal S2, No Murmurs Lungs: Clear to Auscultation, Normal Air Movement Abdomen: Soft, No Tenderness Extremities: No Clubbing, No Cyanosis, No Edema Current Medications: Current Medications Sig/Justo Start time Last Medication Dose Route Stop Time Status Admin Bisacodyl 10 MG ONE ONE 06/04 1145 DC PO 06/04 1146 Ceftriaxone Sodium 1,000 MG DAILY 06/03 1000 DC 06/03 IV 0931 Dextrose/Water 1,000 ML ONCE ONE 06/03 1015 DC 06/03 IV 06/03 2334 1048 Docusate Sodium 100 MG DAILY 06/02 1656 AC 06/04 PO 1051 Enoxaparin Sodium 40 MG DAILY@1600 06/03 1600 AC 06/03 SC 1600 Ergocalciferol 50,000 IU QWED 06/03 0700 AC 06/03 PO 0526 Ibuprofen 600 MG Q6P PRN 06/02 1715 AC PO Memantine 10 MG BID 06/02 2200 AC 06/04 PO 1051 Oxycodone/ 1 TAB Q6P PRN 06/02 1645 AC Acetaminophen PO Oxycodone/ 2 TAB Q6P PRN 06/02 1645 AC Acetaminophen PO Prednisolone 1 GTT QAM 06/03 1000 AC 06/04 OPH 1054 Senna/Docusate Sodium 1 TAB BID 06/04 1136 AC PO Last 24 Hrs of Lab/Antione Results Last 24 Hrs of Labs/Mics: Laboratory Tests 06/04/16 0640: Anion Gap 10, Estimated GFR > 60, BUN/Creatinine Ratio 17.1 Assessment/Plan Assessment: 1. Delirium most likely multifactorial secondary to hypernatremia, advance dementia and possible UTI. * We will stop ceftriaxone, and watch of antibiotic. * He recommended STR * We'll start patient on Mirtazapine at bedtime 2. Hypernatremia Sodium level improved 1:43 AM * Continue D5W at 75/hr * Repeat BMP daily 3. Low vitamin D * Continue home dose of vitamin D Pain management with Percocet and ibuprofen when necessary as per scale DVT prophylaxis: Lovenox Full code Problem List: 1. Altered mental status 2. Delirium 3. Hypernatremia Pain Ratin Pain Location: na Pain Goal: Remain pain free Pain Plan: See A&P Tomorrow's Labs & Rationales: KHANG GUARDADO 06/04/16 1113: Attending MD Review Statement Attending Statement Attending MD Statement: examined this patient, discuss w/resident/PA/BANDER OPERATOR, agreed w/resident/PA/BANDER OPERATOR, discussed with family, reviewed EMR data (avail), discussed with nursing, discussed with case mgmt, reviewed images Attending Assessment/Plan: "patient's . At her baseline the patient does have visiting nurse twice a day, is independent with feeding herself, requires assistance with all other ADLs, does have some deficits with verbalization. They report that over the past 3 days she has exhibited some difficulty with eating and decreased ability to communicate. " 81F not good historian with advanced dementia presenting with delirium, toxic metabolic encephalopathy, and unsteady gait. Labs and clinical evaluation show dehydration and hypernatremia. Hypernatremia improved with fluids. C/w IV fluids, d/catrina Ceftriaxone, PT eval recommend STR, Continue home medications, monitor electrolytes, advanced Dementia provide supportive care, add remeron hs. DVT PPx.
[2016-06-04 13:56] VITALS: BP 120/60
[2016-06-04 22:54] VITALS: BP 118/62
[2016-06-05 06:46] VITALS: BP 120/60
--- NOTE | 2016-06-05 08:50 | PN- Housestaff ---
See Addendum Subjective Follow-up For: Delirium most likely secondary advanced dementia , hypernatremia and possible UTI. Subjective: Hemodynamically stable, no acute overnight events reported. Patient still exhibited inappropriate acts. She does not look in pain or distress. Significant improvement in oral intake. Patient grew gram-negative rods on the urine culture that was taken on admission. View of system cannot be obtained given the advanced dementia. Review of Systems Constitutional: Reports: see HPI. Comments: Review of systems cannot be obtained because of advanced dementia Objective Last 24 Hrs of Vital Signs/I&O Vital Signs Date Time Temp Pulse Resp B/P Pulse O2 O2 Flow FiO2 Ox Delivery Rate 06/05 0646 97.9 90 20 120/60 96 Room Air 06/04 2254 97.7 87 20 118/62 94 Room Air 06/04 1356 98.8 95 20 120/60 95 Room Air 06/04 1120 Room Air Intake & Output 06/05 1600 06/05 0800 06/05 0000 Intake Total 730 Output Total Balance 730 Intake, IV 10 Intake, Oral 720 Physical Exam General Appearance: Alert, not oriented HEENT: Atraumatic, PERRLA, EOMI, Mucous Membr. moist/pink Cardiovascular: Regular Rate, Normal S1, Normal S2, No Murmurs Lungs: Clear to Auscultation, Normal Air Movement Abdomen: Normal Bowel Sounds, Soft, No Tenderness Extremities: No Clubbing, No Cyanosis, No Edema Current Medications: Current Medications Sig/Justo Start time Last Medication Dose Route Stop Time Status Admin Bisacodyl 10 MG ONE ONE 06/04 1145 DC 06/04 PO 06/04 1146 1331 Docusate Sodium 100 MG DAILY 06/02 1656 AC 06/04 PO 1051 Enoxaparin Sodium 40 MG DAILY@1600 06/03 1600 06/04 SC 1658 Ergocalciferol 50,000 IU QWED 06/03 0700 AC 06/03 PO 0526 Ibuprofen 600 MG Q6P PRN 06/02 1715 AC PO Memantine 10 MG BID 06/02 2200 AC 06/04 PO 2145 Mirtazapine 15 MG AT BEDTIME 06/04 2200 AC 06/04 PO 2145 Oxycodone/ 1 TAB Q6P PRN 06/02 1645 AC Acetaminophen PO Oxycodone/ 2 TAB Q6P PRN 06/02 1645 AC Acetaminophen PO Prednisolone 1 GTT QAM 06/03 1000 AC 06/04 OPH 1054 Senna/Docusate Sodium 1 TAB BID 06/04 1136 AC 06/04 PO 2145 Last 24 Hrs of Lab/Antione Results Last 24 Hrs of Labs/Mics: Laboratory Tests 06/05/16 0806: Sodium Pending, Potassium Pending, Chloride Pending, Carbon Dioxide Pending, Anion Gap Pending, BUN Pending, Creatinine Pending, BUN/Creatinine Ratio Pending Assessment/Plan Assessment: 1. Delirium most likely multifactorial secondary to hypernatremia, advance dementia and possible UTI. Patient WBCs are WNL and she is afebrile throughout this admission. Patient has severe advanced dementia and urinary symptoms cannot be obtained. Even though urine culture grew gram-negative leighton more than 100,000 patient does not seem symptomatic and continued to improve off antibiotic. * Continue watch off antibiotic * Continue Mirtazapine at bedtime * PT recommended STR 2. Hypernatremia Sodium level improved yesterday to 143, however one back up to 147 this am. * We will give one bag of D5W at 75/hr * Repeat BEP daily * If discharged today she will be instructed to repeat BMP within one week 3. Low vitamin D * Continue home dose of vitamin D Pain management with Percocet and ibuprofen when necessary as per scale DVT prophylaxis: Lovenox Full code Problem List: 1. Delirium Pain Ratin Pain Location: NA Pain Goal: Remain pain free Pain Plan: See assessment and plan Tomorrow's Labs & Rationales: CBC and BEP
[2016-06-05 13:14] VITALS: BP 120/60
[2016-06-05 14:56] VITALS: BP 108/60
== END 2016-06-05 16:35 | DRG 689 ==
LOC: ENRESERVTM → ENRESERVDT → ERH 12:03 → ENPENDDIS 15:14 → ERHI 15:14 → 2NA 15:14
PROVIDERS: Emergency Medicine; Internal Medicine; ADMIT Internal Medicine
DX: N39.0 Urinary tract infection, site not specified (principal); G93.41 Metabolic encephalopathy; F05 Delirium due to known physiological condition; E86.0 Dehydration; E87.0 Hyperosmolality and hypernatremia; F03.90 Unspecified dementia, unspecified severity, without behavioral disturbance, psychotic disturbance, mood disturbance, and anxiety; E55.9 Vitamin D deficiency, unspecified
CPT/HCPCS: 2NASP; 36415; 81001; 82436; 87086; 93005; 93010; 96374; 97110-GO; 97161-GP; 97530-GO; J0696; J1650; J7042; J7060